=== PATIENT | female | born 1970 | race Caucasian/White ===

== ENCOUNTER 2024-03-04 00:24 | Day surgery (SDC) | payer OTHER, SELFPAY ==
[2024-02-19 08:36] VITALS: BMI 25.2
[2024-03-04 07:14] VITALS: BP 143/91; PULSE 91; RESP 18; TEMP 35.9; O2SAT 94; BMI 24.5
[2024-03-04] MEDS: LACTATED RINGERS 1,000 ML 150 ML IV CONT (07:41)
--- NOTE | 2024-03-04 07:58 | WPDANESEPPF ---
Anes - Initial Pre Proc Eval Procedure: Operation Date: 03/04/24 08:30 Proposed Procedures p Screening Colonoscopy - Hira Trinidad DO Date/Time: 03/04/24 07:58 Surgeon: Hira Trinidad DO Pre Op Diagnosis: Screening for malignant neoplasm of colon Patient Data Age: 54 Gender: F Height: 1.68 m Weight: 68.8 kg Last Vital Signs Temp 96.7 F L 03/04/24 07:14 Pulse 91 03/04/24 07:14 Resp 18 03/04/24 07:14 BP 143/91 H 03/04/24 07:14 Pulse Ox 94 03/04/24 07:14 O2 Del Method Room Air 03/04/24 07:14 Allergies Allergy/AdvReac Type Severity Reaction Status Date / Time No Known Allergies Allergy Verified 03/04/24 07:21 Home Medications Medication Instructions Recorded Confirmed Type albuterol sulfate 90 mcg/actuation 2 inh inhalation Q4H PRN shortness 01/28/24 03/04/24 Rx aerosol inhaler of breath or wheezing #8.5 grams budesonide 160 mcg-glycopyr 9 2 inh inhalation BID #10.7 grams 01/28/24 03/04/24 Rx mcg-formot 4.8 mcg/actuation HFA inhaler ([employer]) duloxetine 20 mg capsule,delayed 20 mg PO DAILY #90 caps 01/28/24 03/04/24 Rx release losartan 100 mg tablet 100 mg PO DAILY #90 tabs 01/28/24 03/04/24 Rx montelukast 10 mg tablet 10 mg PO QHS #90 tabs 01/28/24 03/04/24 Rx pregabalin 100 mg capsule 100 mg PO BID #180 caps 01/28/24 03/04/24 Rx hydrocodone 10 mg-acetaminophen 1 tablet PO Q6H PRN pain #120 tabs 02/16/24 03/04/24 Rx 325 mg tablet Patient hx anesthesia problems: none Family hx anesthesia problems: none Results Review: All pre-operative results and documents have been reviewed as part of the pre-operative evaluation. [facility] Past Medical History Medical History Allergies Anxiety Arthritis Cervical arthritis COPD (chronic obstructive pulmonary disease) Hypertension Lumbar stenosis Surgical History Surgical History H/O tubal ligation History of appendectomy Family History Family History Father Heart disease Hypertension Mother Depression Alcoholism Grandparent Heart disease Cerebrovascular accident Sibling Alcoholism Social History Social History Smoking packs per day: 0.5 Smoking cigarettes per day: 10.0 Years smoked: 30 Smoking pack-years: 15.00 Smoking status: Current every day smoker Tobacco type: cigarettes Alcohol intake: current Drinks per week: 10 Substance use: never Do You Feel Safe in your Home?: Yes Lack of Transportation: No Lack of Food: Never True Current Housing: I Have Housing Concerned About Future Housing: No Difficulty Paying Gas/Electric Bills: No Difficulty Paying for Meds: No Currently Unemployed: No Education: Don't Know Difficulty w/ Childcare or Family Care: No Living arrangements: with family Spiritual care concerns: No Anes - Eval Final PreProcedure Day of Procedure 03/04/24 07:58 Patient weight: normal Heart: regular rate and rhythm Lungs: clear to auscultation Airway: Mallampati scale class II Neurological: alert and oriented Last oral intake: >/= 8 hours ASA classification: II Emergent: no Anesthetic plan: proceed Anesthesia type and monitoring: general and standard monitoring Results Review: All pre-operative results and documents have been reviewed as part of the pre-operative evaluation. Pt smokerr 1/2 ppd, smoked this am. Informed Consent: The patient's anesthetic plan and its attendant risks and benefits were discussed with the patient/family/POA. Questions were solicited and answers provided to the satisfaction of the patient/family/POA.
--- NOTE | 2024-03-04 08:15 | PM.IMHP ---
H&P: HPI History of Present Illness Date/Time: 03/04/24 08:15 Chief Complaint: screening for colorectal cancer Narrative: this is a 54-year-old woman who presents for colonoscopy. She has never had a colonoscopy before. She denies any hematochezia or melena. She denies any family history of colon cancer. Review of Systems Review of Systems: All systems reviewed & are unremarkable except as noted in HPI and below Constitutional: Constitutional: Denies chills, Denies fever(s), Denies headache(s) and Denies weight loss Eyes: Eyes: Denies change in vision ENT: Denies dizziness, Denies headache(s), Denies neck mass and Denies throat swelling Cardiovascular: Cardiovascular: Denies chest pain, Denies lightheadedness and Denies dyspnea Respiratory: Respiratory: Denies cough, Denies dyspnea and Denies wheezing Gastrointestinal: Gastrointestinal: Denies abdominal pain, Denies change in bowel habits, Denies nausea and Denies vomiting Genitourinary: Genitourinary: Denies hematuria and Denies dysuria Musculoskeletal: Musculoskeletal: Reports as per HPI Integumentary/Breasts: Skin/Breast: Reports as per HPI Neurologic: Denies dizziness and Denies headache(s) Allergic/Immunologic: Allergic/Immunologic: Denies throat swelling and Denies wheezing [facility] Past Medical History Medical History Allergies Anxiety Arthritis Cervical arthritis COPD (chronic obstructive pulmonary disease) Hypertension Lumbar stenosis Surgical History Surgical History H/O tubal ligation History of appendectomy Family History Family History Father Heart disease Hypertension Mother Depression Alcoholism Grandparent Heart disease Cerebrovascular accident Sibling Alcoholism Social History Social History Smoking packs per day: 0.5 Smoking cigarettes per day: 10.0 Years smoked: 30 Smoking pack-years: 15.00 Smoking status: Current every day smoker Tobacco type: cigarettes Alcohol intake: current Drinks per week: 10 Substance use: never Do You Feel Safe in your Home?: Yes Lack of Transportation: No Lack of Food: Never True Current Housing: I Have Housing Concerned About Future Housing: No Difficulty Paying Gas/Electric Bills: No Difficulty Paying for Meds: No Currently Unemployed: No Education: Don't Know Difficulty w/ Childcare or Family Care: No Living arrangements: with family Spiritual care concerns: No Meds Home Medications and Allergies Home Medications Medication Instructions Recorded Confirmed Type albuterol sulfate 90 mcg/actuation 2 inh inhalation Q4H PRN shortness 01/28/24 03/04/24 Rx aerosol inhaler of breath or wheezing #8.5 grams budesonide 160 mcg-glycopyr 9 2 inh inhalation BID #10.7 grams 01/28/24 03/04/24 Rx mcg-formot 4.8 mcg/actuation HFA inhaler ([employer]) duloxetine 20 mg capsule,delayed 20 mg PO DAILY #90 caps 01/28/24 03/04/24 Rx release losartan 100 mg tablet 100 mg PO DAILY #90 tabs 01/28/24 03/04/24 Rx montelukast 10 mg tablet 10 mg PO QHS #90 tabs 01/28/24 03/04/24 Rx pregabalin 100 mg capsule 100 mg PO BID #180 caps 01/28/24 03/04/24 Rx hydrocodone 10 mg-acetaminophen 1 tablet PO Q6H PRN pain #120 tabs 02/16/24 03/04/24 Rx 325 mg tablet Allergies Allergy/AdvReac Type Severity Reaction Status Date / Time No Known Allergies Allergy Verified 03/04/24 07:21 Vital Signs Vital Signs - 24 hr 03/04/24 07:14 Temperature 35.9 C L Pulse Rate 91 Respiratory Rate 18 Blood Pressure 143/91 H Pulse Oximetry 94 Oxygen Delivery Room Air Exam Const: General: no acute distress and alert Orientation/consciousness: patient oriented x3 HENMT: Head: normocephalic and atraumati
[2024-03-04 08:38] VITALS: BP 109/71; PULSE 91; RESP 18; O2SAT 97
[2024-03-04 08:48] VITALS: BP 121/74; PULSE 81; RESP 20; O2SAT 97
[2024-03-04 08:58] VITALS: BP 135/70; PULSE 78; RESP 20; O2SAT 97
== END 2024-03-04 08:58 | disposition home or self-care (01) ==
PROVIDERS: PCP Family Medicine; Visit Provider Surgery
PROC: 0DJD8ZZ Inspection of Lower Intestinal Tract, Via Natural or Artificial Opening Endoscopic (ICD-10-PCS; CPT 45378; principal; 2024-03-04 08:30)
DX: Z12.11 Encounter for screening for malignant neoplasm of colon (principal); K62.1 Rectal polyp; K57.30 Diverticulosis of large intestine without perforation or abscess without bleeding; K64.8 Other hemorrhoids; J44.9 Chronic obstructive pulmonary disease, unspecified; I10 Essential (primary) hypertension; F41.9 Anxiety disorder, unspecified; Z79.51 Long term (current) use of inhaled steroids; F17.210 Nicotine dependence, cigarettes, uncomplicated
CPT/HCPCS: 45380; 88305; J2704; J7120